=== PATIENT | female | born 1980 | race Caucasian/White ===

== ENCOUNTER 2022-09-28 16:44 | Outpatient (CLI) | payer OTHER, SELFPAY | END 2022-09-28 16:45 | disposition home or self-care (01) | PROVIDERS: PCP Family Medicine; Visit Provider Physician Assistant | DX: Z01.419 Encounter for gynecological examination (general) (routine) without abnormal findings (principal); E03.9 Hypothyroidism, unspecified; I10 Essential (primary) hypertension; F41.9 Anxiety disorder, unspecified | CPT/HCPCS: 82306; 84443 ==

== ENCOUNTER 2022-12-14 13:30 | Outpatient (CLI) | payer OTHER, SELFPAY ==
--- NOTE | 2022-12-14 13:40 | CRLHL7_ITS ---
For Patients: As a result of the Century Cures Act, medical imaging exams and procedure reports are released immediately into your electronic medical record. You may view this report before your referring provider. If you have questions, please contact your health care provider. BILATERAL SCREENING MAMMOGRAM WITH COMPUTER-AIDED DETECTION AND TOMOSYNTHESIS TECHNIQUE: CC and MLO views were obtained. These mammographic images have been obtained using full-field digital technique. These mammographic images were interpreted with the benefit of computer-aided detection. Breast tomosynthesis was used in this interpretation. COMPARISON FILM: None. This is a baseline study. FINDINGS: There are scattered areas of fibroglandular density. IMPRESSION: There is no radiographic evidence for malignancy. ASSESSMENT: BI-RADS Category 1: Negative RECOMMENDATION: Routine screening mammogram in 1 year. A lay language report of this examination will be provided to the patient. TRAMAINE GIORDANO M.D. Diagnostic Radiologist [email or web address] HAIR/alix Transcribed: 12/15/2022, 1:[address]/Dictated by: Tramaine Giordano MD @ 12/15/2022 10:36:00 AM (Electronically Signed)
== END 2022-12-14 13:31 | disposition home or self-care (01) ==
LOC: MAMMO 13:31
PROVIDERS: PCP Family Medicine; Visit Provider Physician Assistant
DX: Z12.31 Encounter for screening mammogram for malignant neoplasm of breast (principal)
CPT/HCPCS: 77063; 77067

== ENCOUNTER 2023-07-12 16:26 | Outpatient (CLI) | payer OTHER, SELFPAY | END 2023-07-12 16:27 | disposition home or self-care (01) | LOC: NFLDREF 07-13 09:06 | PROVIDERS: PCP Family Medicine; Referring Provider Family Medicine; Visit Provider Otolaryngology | DX: G25.81 Restless legs syndrome (principal); Z13.0 Encounter for screening for diseases of the blood and blood-forming organs and certain disorders involving the immune mechanism | CPT/HCPCS: 82728 ==

== ENCOUNTER 2023-08-02 18:31 | Outpatient (CLI) | payer OTHER, SELFPAY | END 2023-08-02 18:32 | disposition home or self-care (01) | LOC: NFLDREF 18:32 | PROVIDERS: PCP Family Medicine; Visit Provider Physician Assistant | DX: N92.0 Excessive and frequent menstruation with regular cycle (principal) | CPT/HCPCS: 84443 ==

== ENCOUNTER 2023-08-08 15:52 | Outpatient (CLI) | payer OTHER, SELFPAY ==
--- NOTE | 2023-08-08 16:00 | US_ITS ---
Final Report Patient: SHIRA BRANDT Facility:?[facility] Patient ID:?[id number] Site Patient ID:?[id number]. Site :?1980 Study:?US Pelvis PELVIS TA & TV-08/08/2023 5:21:49 PM Ordering Physician:SANDY SEPTEMBER Final Report: Indication: Excessive or frequent menstruation Technique: Grayscale and color ultrasound of the abdomen and pelvis from a transabdominal and transvaginal approach. Transvaginal imaging necessary for improved visualization of the endometrium. Comparison: None Findings: The uterus measures 9.5 x 5.2 x 6.9 centimeters. No uterine masses. The endometrium measures 1.5 centimeters in double thickness. No endometrial masses. Endometrial canal has an arcuate shape. This is best seen on 3D imaging. Fundal contour appears smooth. The right ovary measures 3.3 x 1.8 x 2.0 centimeters. The left ovary measures 4.1 x 2.4 x 2.5 centimeters. Physiologic appearance of both ovaries. Normal color flow. Few nabothian cysts. There is a small cyst in the anterior inferior perivaginal soft tissues consistent with a Leonidas duct cyst. Per the patient this is a known finding. Impression: 1. 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 MR could be confirmatory if necessary. Dictated by Izabella Silva MD @ 08/09/2023 6:34:59 AM (Electronic Signature)
== END 2023-08-08 15:53 | disposition home or self-care (01) ==
LOC: US 15:52
PROVIDERS: PCP Family Medicine; Visit Provider Physician Assistant
DX: N92.0 Excessive and frequent menstruation with regular cycle (principal)
CPT/HCPCS: 76830; 76856

== ENCOUNTER 2023-09-06 15:35 | Outpatient (CLI) | payer OTHER, SELFPAY ==
--- NOTE | 2023-09-06 15:30 | MR_ITS ---
Patient: SHIRA BRANDT Facility:?[facility] Patient ID:?[id number] Site Patient ID:?[id number]. Site :?1980 Study:?MRI-Pelvis W/ and W/O Cont 20 CC DOATERM-09/06/2023 4:52:34 PM Ordering Physician:?AJIT COATES Final Report: INDICATION: Known Leonidas duct cyst. COMPARISON: Pelvic ultrasound dated 08 August 2023. TECHNIQUE: Pelvic MRI with T1, T2, and postcontrast images. Intravenous gadolinium administered. FINDINGS: Normal appearance of the uterus. Normal thickness of the endometrial stripe. IUD in place. Nabothian cysts in the cervix. 2.7 x 2.0 x 1.1 cm cyst along the right anterior lateral wall of the upper vagina. Normal appearance of the ovaries which contain scattered small follicles. Trace amount of free fluid in the pelvis. No other bony or soft tissue abnormalities identified. Impression : 1. 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 Dictated by Didier Hannon MD @ 09/06/2023 10:39:51 PM Signed by:?Didier Hannon MD @09/06/2023 10:39:51 PM (Electronic Signature)
== END 2023-09-06 15:36 | disposition home or self-care (01) ==
LOC: MRI 15:36
PROVIDERS: PCP Family Medicine; Visit Provider Obstetrics & Gynecology
DX: N89.8 Other specified noninflammatory disorders of vagina (principal)
CPT/HCPCS: 72197; A9575

== ENCOUNTER 2023-12-13 16:05 | Outpatient (CLI) | payer OTHER, SELFPAY ==
--- OUTSIDE RECORDS SUMMARY | 2023-12-16 08:38 | XMS_ITS | Referral Summary ---
Author Organization [facility] Address [address] [place] [address] Care Team Providers Care Acquisition Marketing Manager Name Role Phone None Reported, Pcp Primary Care Provider Unavail able Source Comments Patient records contain information from all sites at [facility]. For routine questions regarding patient records, call [phone] during business hours, M-F 8:00 AM - 5:00 PM Central Time. Record requests for emergency care only can be directed to [phone] at any time.[facility] Encounters Date Type Department Care Team Description 12/13/2023 3:30 PM CDT External Outreach Division of Nephrology and Hypertension in [place], [place] [address] [place] [address] Jie Black M.D., Ph.D. Arrived from Last 3 Months Allergies No known active allergies Medications Medication Sig Dispensed Refills Start Date End Date Status cholecalciferol (VITAMIN D3) 2,000 Unit tablet Take 1 tablet by mouth daily. 02/21/2014 Active escitalopram (LEXAPRO) 10 mg tablet Take 10 mg by mouth daily. Active irbesartan (AVAPRO) 150 mg tablet Take 1 tablet (150 mg total) by mouth daily. 100 tablet 3 12/13/2022 Active iron 18 mg tablet Take 1 tablet by mouth daily. Active aluminum chloride (DRYSOL) 20 % external solutionIndication s:Hyperhidrosis Apply 1 Application topically at bedtime. 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 No 08/17/2023 Humiliation, Afraid, Rape, and Kick questionnair e Answer Date Recorded Within the last year, have y ou been afraid of your partner or ex-partner? No 01/17/2022 Within the last year, have y ou been humiliated or emotionally abused in other ways by your partner or ex-partner? No Within the last year, have y ou been kicked, hit, slapped, or otherwise physically hurt by your partner or ex-partner? No 01/17/2022 Within the last year, have y ou been raped or forced to have any kind of sexual activity by your partner or ex-partner? No 01/17/2022 Social Connection and Isolat ion Panel [NHANES] Answer Date Recorded In a typical week, how many times do you talk on the phone with family, friends, or neighbors? Three times a week 01/17/2022 How often do you get togethe r with friends or relatives? More than three times a week 01/17/2022 How often do you attend chur ch or bahai services? More than 4 times per year 01/17/2022 Do you belong to any clubs o r organizations such as mandaen groups, unions, fraternal or athletic groups, or school groups? Yes 01/17/2022 How often do you attend meet ings of the clubs or organizations you belong to? More than 4 times per year 01/17/2022 Are you , , di vorced, , never , or living with a partner? 01/17/2022 AUDIT-C Answer Date Recorded Q1: How often do you have a drink containing alcohol? Monthly or less 01/17/2022 Q2: How many drinks containi ng alcohol do you have on a typical day when you are drinking? Patient does not drink Q3: How often do you have si x or more drinks on one occasion? Never 01/17/2022 Overall Financial Resource Strain (CARDIA) Answe r Date Recorded How hard is it for you to pa y for the very basics like food, housing, medical care, and heating? Not hard at all 01/17/2022 [facility] of Occupat ional Health - Occupational Stress Questionnaire Answer Date Recorded Do you feel stress - tense, restless, nervous, or anxious, or unable to sleep at night because your mind is troubled all the time - these days? Not at all 01/17/2022 Exercise Vital Sign Answer Date Recorde d On average, how many days pe r week do you engage in moderate to strenuous exercise (like a brisk walk)? 5 days 08/17/2023 On average, how many minutes do you engage in exercise at this level? 30 min 08/17/2023 Hunger Vital Sign Answer Date Recorded Within the past 12 months, y ou worried that your food would run out before you got the money to buy more. Never true 08/17/19 24 Within the past 12 months, t he food you bought just didn't last and you didn't have money to get more. Never true 08/17/2023 PRAPARE - Transportation Answer Date Re corded In the past 12 months, has l ack of transportation kept you from medical appointments or from getting medications? No 07/22 In the past 12 months, has l ack of transportation kept you from meetings, work, or from getting things needed for daily living? No 08/17/2023 Nutrition Answer Date Recorded Nutrition: EVOO Fat Source No 08/17 On average, how many serving s of fruits and vegetables do you eat per day (serving size is equal to 1 cup or approximately the size of a tennis ball)? 3-5 08/17/2023 Dental Answer Date Recorded Dental: Regular Dentist Yes 01/18/20 Employment Answer Date Recorded Employment status Employed and actively working without restrictions 08/17/2023 Housing Stability Answer Date Recorded What is your living situation today? I have a [facility] place to live 08/17/2023 Education Answer Date Recorded What is the highest level of school you have completed or the highest degree you have received? Master's degree (e.g., MA, MS, Inez, MEd, [employer], [employer]) 11/27/2019 Sex and Gender Information Value Date Recorded Sex Assigned at Female 07/07/2018 8:28 PM PHOTO STYLIST Gender Identity Female 07/07/2018 8:28 PM PHOTO STYLIST Sexual Orientation Straight 07/07/2018 8: 28 PM PHOTO STYLIST Last Filed Vital Signs Vital Sign Reading Time Taken Comments Blood Pressure 118/74 12/13/2022 1:58 PM CDT Pulse 63 09/14/2022 12:00 PM CDT Temperature 36.7 ??C (98.1 ??F) 12/13/2022 1:44 PM CD T Respiratory Rate 10 09/14/2022 11:1 5 AM CDT Oxygen Saturation 100% 09/14/2022 12: 00 PM CDT Inhaled Oxygen Concentration - - Weight 77.1 kg (169 lb 15.6 oz) 12/13/2022 1:44 PM CDT Height 183 cm (6' 0.05) 09/14/2022 6:50 AM CDT Body Mass Index 23.02 09/14/2022 6:50 AM CDT Plan of Treatment Scheduled Procedures Name Priority Associated Diagnoses Date/Ti me OSTEOTOMY MAXILLA Malocclusion OSTEOTOMY BILATERAL SAGITTAL SPLIT RAMUS MANDIBLE Malocclusion Medical Devices Implanted Type Area Addiction Nurse Device Identifier Shelf Expiration Date Model / Serial / Lot Misc Other Misc Other Mouth Procedures Procedure Name Priority Date/Time Associated Diagnosis Comments BASIC METABOLIC PANEL, S/P Routine 12/13/2022 2:39 PM CDT Polycystic Kidney Autosomal Dominant from Last 3 Months or Most Recently Relevant to Health Maintenance Results * Basic Metabolic Panel (12/13/2022 2:39 PM CDT) Potassium, S 4.2 3.6 - 5.2 mmol/L 12/13/2022 3:36 PM CDT DTL Sodium, S 139 135 - 145 mmol/L 12/13/2022 3:36 PM CDT DTL Chloride, S 102 98 - 107 mmol/L 12/13/2022 3:36 PM CDT DTL Bicarbonate, S 28 22 - 29 mmol/L 12/13/2022 3:36 PM CDT DTL Anion Gap 9 7 - 15 12/13/2022 3:36 PM CDT DTL BUN (Blood Urea Nitrogen), S 20 6 - 21 mg/dL 12/13/2022 3:36 PM CDT DTL Creatinine 0.99 0.59 - 1.04 mg/dL 12/13/2022 3:36 PM CDT DTL Estimated GFR (eGFR) 74 >=60 mL/min/BSA 12/13/2022 3:36 PM CDT DTL Comment: Estimated GFR calculated using the 2020 CKD_EPI creatinine equation. Calcium, Total, S 9.5 8.6 - 10.0 mg/dL 12/13/2022 3:36 PM CDT DTL Glucose, S 94 70 - 140 mg/dL 12/13/2022 3:36 PM CDT DTL Blood (Blood, Venous) 12/13/2022 2:39 PM CDT 12/13/2022 3:13 PM CDT Rhett Potts M.D. LAB BLOOD ADD-ON [facility] [address] [place] [address], [facility] [place] [address] [place] [address] from Last 3 Months or Most Recently Relevant to Health Maintenance Advance Directives For more information, please contact: [phone] * Full Code (Latest Code Status on File) Date Activated Date Inactivated Comments 09/14/2022 11:40 AM 09/16/2022 2:08 AM Question Answer Comments Full Code: Discussed * Full Code Date Activated Date Inactivated Comments 09/14/2022 6:35 AM 09/14/2022 11:40 AM Question Answer Comments Full Code: Discussed Care Teams Acquisition Marketing Manager Relationship Specialty Start Date End Date None Reported, Pcp PCP - General Family Medicine 09/14/22
--- OUTSIDE RECORDS SUMMARY | 2023-12-16 08:38 | XMS_ITS | Clinical Summary ---
Author Organization [facility] Address [place], [place] [address] Care Team Providers Care Wire Technician Name Role Phone Aylin Solis MD Primary Care Provider Unavaila ble Allergies No known active allergies Medications Medication Sig Dispensed Refills Start Date End Date Status levothyroxine (SYNTHROID) 50 mcg tabletIndications :hypothyroidism Take 50 mcg by mouth before breakfast. Indications: HYPOTHYROIDISM Active Breast Pump - Purchase For home use. Gestation age at delivery: 39 weeks. Reason for need: facilitation of . Length of need: 12 months 1 Device 0 05/02/2013 Active cholecalciferol (VITAMIN D3) 2,000 unit capsule Take 2,000 Units by mouth once daily. Active VIT W-CA,FE,FA,<1 MG, ( VITAMIN ORAL) Take by mouth once daily. Active ibuprofen (ADVIL; MOTRIN) 600 mg tabletIndications :Spontaneous vaginal delivery Take 1 tablet by mouth every 6 hours if needed for Pain. Maximum of 3200 mg in 24 hours. 60 tablet 12/25/2015 Active Active Problems Problem Noted Date Diagnosed Date Chronic hypertension with ex acerbation during in third trimester 12/23/2015 Spontaneous vaginal delivery 12/23/2015 Gestational hypertension 04/30/2013 Eczematous dermatitis of eyelid 12/31/2009 Polycystic kidney 12/19/2009 Overview: 01/2010 - Dr. Rhett Potts at [place] - yearly UA, BP, creatinine, copies to him at [phone], follow-up every 1-2 years. Recommend high-risk OB for any . Recommend echocardiogram if palpitations. Resolved Problems Problem Noted Date Diagnosed Date Resolved Date Status post vaginal delivery 04/30/2013 12/23/2015 Immunizations Name Administration Dates Next Due Td (Age >=7 Years) 06/20/2003 Tdap 03/14/2013 Family History Medical History Relation Name Comments Allergies Father Good Health Father Good Health Maternal Grandfather Other Maternal Grandfather glaucom a Cancer-breast Maternal Grandmother Hyperlipidemia Maternal Grandmother Other Maternal Grandmother glaucom a Hypertension Mother Other Mother Polycystic kidn eys Diabetes Paternal Grandfather Heart Disease Paternal Grandfather Stroke Paternal Grandfather Diabetes Paternal Grandmother Heart Disease Paternal Grandmother Relation Name Status Comments Father Alive Maternal Grandfather Alive Maternal Grandmother Alive Mother Alive Paternal Grandfather Paternal Grandmother Social History Tobacco Use Types Packs/Day Years Used Date Smoking Tobacco: Never Smokeless Tobacco: Never Alcohol Use Standard Drinks/Week Comments No 0 (1 standard drink = 0.6 oz pur e alcohol) rare Sex and Gender Information Value Date Recorded Sex Assigned at Not on file Gender Identity Not on file Sexual Orientation Not on file Obstetrics History Para Term AB IAB SAB Ectopic Multiple Livin g Live Births 4 3 3 0 1 0 1 0 0 3 3 Date Outcome GA Total Labor Labor/2nd/3rd Weight Sex Type Anes PTL Rivka A1 A5 Name Clin SAB 02/2011 Term 40w 0d 4h 00m/ 4.17 kg (9 lb 3 oz) F Vag Epidur al N Livin g Carly 013 Term 39w 2d 3.93 kg (8 lb 10.5 oz) M Vag Livin g 9 9 SHERMAN LEE Delivery Location:[facility] 016 Term 38w 5d 4.59 kg (10 lb 2 oz) M Vag None Livin g 9 9 Complications:None Delivery Location:[facility] Last Filed Vital Signs Vital Sign Reading Time Taken Comments Blood Pressure 131/85 12/25/2015 9:00 AM CDT Pulse 71 12/25/2015 9:00 AM CDT Temperature 36.6 ??C (97.8 ??F) 12/25/2015 9:00 AM CD T Respiratory Rate 16 12/25/2015 9:00 AM CDT Oxygen Saturation 100% 12/23/2015 11:45 PM CDT Inhaled Oxygen Concentration - - Weight 79.1 kg (174 lb 4.8 oz) 12/25/2015 9:00 A M CDT Height 182.9 cm (6') 12/23/2015 3:30 PM CDT Body Mass Index 23.64 12/23/2015 3:30 PM CDT Plan of Treatment Health Maintenance Due Date Last Done Comments Depression screening for age 12+ 1994 HIV for age 15-65 1997 BMI (ht and wt on same day) for age 18+ 2000 Hepatitis C screening for age 18-79 2000 COVID-19 vaccine series (2022- season) 2023 Tetanus booster 03/14/2023 03/14/2013, 06/20/2003 Influenza for age 9-49 02/19/2024 Pap test for age 21-65 03/10/2024 , 03/10/2021, 12/18/2009, Additional history exists Tdap Completed 03/14/2013 Pneumococcal series for age 6-64 Aged Out No longer eligible based on patient's age to complete this topic Procedures Procedure Name Priority Date/Time Associated Diagnosis Comments HAND BUNCH MAKER THIN PREP PAP SCREEN IMAGED Routine 03/10/2021 5:35 PM CDT from Last 3 Months or Most Recently Relevant to Health Maintenance Results * HAND BUNCH MAKER THIN PREP PAP SCREEN IMAGED (03/10/2021 5:35 PM CDT) Case Report Gynecologic Cytology Report ? Case: [id number] ? Authorizing Provider: ??Malu Whaley PA-C ?Collected: ? 03/10/2021 1735 ? Ordering Location: ? [facility] ?Received: ?03/12/2021 1131 ? First Screen: ?Baccam, Minie ? Pathologist: ? Orly Gustafson ? MD [place] ? Specimen: ?HAND BUNCH MAKER ThinPrep Vial Screening, Cervical/Vaginal ? 03/27/2021 1:27 PM CDT [facility] INTERPRETATION/ RESULT NEGATIVE FOR INTRAEPITHELIAL LESION OR MALIGNANCY (NIL) (none) 03/27/2021 1:27 PM T [facility] R NON-NEOPLASTIC FINDING(S) Parakeratosis Reactive cellular changes associated with inflammation/repa ir 03/27/2021 1:27 PM CDT [facility] SPECIMEN ADEQUACY Satisfactory for evaluation Endocervical component present 03/27/2021 1:27 PM CDT [facility] HPV REQUEST HPV and PAP 03/27/2021 1:27 PM CDT [facility] Date of LMP 02/22/2021 03/27/2021 1:27 PM CDT [facility] Last Pap Date 02/02/2016 03/27/2021 1:27 PM CDT [facility] Last Pap Result NIL 1:27 PM CDT [facility] Comment:-HPV Additional Information 03/27/2021 1:27 PM CDT [facility] Comment: Interpreted at [facility] - [address], [place] [address] Automated Review Successful 03/27/2021 1:27 PM CDT [facility] Comment:Specimen processed s uccessfully by automated neighborhood service center director device, [employer] Imaging System, [employer] ANCILLARY TESTING HAND BUNCH MAKER HPV Ordered, Please see separate report 03/27/2021 1:27 PM CDT [facility] Note The pap test is a screening technique, not a diagnostic procedure. It is used primarily to screen for squamous cancers and precursor lesions. Published studies have shown that it is subject to both false negative and false positive results. The pap test should not be used as the sole means to diagnose or exclude pre-malignant and malignant lesions. 03/27/2021 1:27 PM CDT [facility] Other (Cervical/Vagina l) 03/10/2021 5:35 PM CDT 03/12/2021 11:31 AM CDT September Judd [facility] PATH[facility]Y/CYTOLOGY [facility] [address] [place] [address], [place] from Last 3 Months or Most Recently Relevant to Health Maintenance Advance Directives * Full Code (Latest Code Status on File) Date Activated Date Inactivated Comments 12/23/2015 10:27 PM 12/25/2015 1:51 PM * Full Code Date Activated Date Inactivated Comments 12/23/2015 2:55 PM 12/23/2015 10:26 PM * Full Code Date Activated Date Inactivated Comments 12/23/2015 1:23 PM 12/23/2015 2:55 PM * Full Code Date Activated Date Inactivated Comments 04/30/2013 5:13 PM 05/02/2013 1:33 PM * Full Code Date Activated Date Inactivated Comments 04/30/2013 9:25 AM 04/30/2013 5:13 PM Care Teams Wire Technician Relationship Specialty Start Date End Date Aylin Solis MD PCP - General Family Practice 04/27/13
--- OUTSIDE RECORDS SUMMARY | 2023-12-16 08:38 | XMS_ITS | Clinical Summary ---
Author Organization [facility] Address [address] [place] [address] Care Team Providers Care Laboratory Chief Name Role Phone None Reported, Pcp Primary Care Provider Unavail able Source Comments Patient records contain information from all sites at [facility]. For routine questions regarding patient records, call [phone] during business hours, M-F 8:00 AM - 5:00 PM Central Time. 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 Arrived from Last 3 Months Immunizations Name Administration Dates Next Due Tdap 03/20/2011 Family History Medical History Relation Name Comments Kidney disease Maternal Grandfather Patel Hypertension Mother Radha Kidney disease Mother Radha Relation Name Status Comments Maternal Grandfather Patel Mother Radha Social History Tobacco Use Types Packs/Day Years Used Date Smoking Tobacco: Never Smokeless Tobacco: Never Tobacco Cessation:Counseling Given: Not Answered Alcohol Use Standard Drinks/Week Comments No 0 (1 standard drink = 0.6 oz pur e alcohol) [facility] Utilities Answer Date Recorded In the past 12 months has e electric, gas, oil, or water company threatened to shut off services in your [...] 01/17/2022 How often do you attend chur or mormonism services? More than 4 times per year 01/17/2022 Do you belong to any clubs o r organizations such as voodoo groups, unions, fraternal or athletic groups, or [...] and heating? Not hard at all 01/17/2022 [facility] Occupat ional Health - Occupational Stress [...] situation today? I have a [facility] place to live 08/17/2023 Education Answer Date Recorded What is the highest level of school you have completed or the highest degree you have received? 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 Health Maintenance Due Date Last Done Comments HIV Screening 1982 Hepatitis C Screening 1982 Lipid (Cholesterol) Screening 1982 Mammogram 1982 Visit: Chronic Disease, age 18+ 1982 Hepatitis B Vaccines (1 of 3 - 19+ 3-dose series) 2001 Influenza Vaccine (#1) 2023 2, 03/23/2021, 03/21/2020, Additional history exists Depression Screening (Annual PHQ-2) 06/20/2023 Creatinine Level (Kidney Function Test) 12/14/2023 12/13/2022, 01/21/2022, 12/01/2021, Additional history exists Office Visit for Blood Pressure Check / Re-check 12/14/2023 12/13/2022 Potassium Level 12/14/2023 12/13/2022, 08/0 09/2021, 12/01/2021, Additional history exists Sodium Level 12/14/2023 12/13/2022, 08/0 09/2021, 01/07/2021 Cervical Cancer Screening 03/10/20242020, 02/02/2016, 07/21/2014 (Performed elsewhere), Additional history exists DTaP,Tdap,and Td Vaccines (4 - Td or Tdap) 10/13/2025 10/14/2015, 03/14/2013, 03/20/2011 COVID-19 Vaccine Completed 11/15/2023, , 04/18/2021, Additional history exists HPV Vaccines Aged Out No longer eligi ble based on patient's age to complete this topic Pneumococcal vaccine (0-64 years) Aged Out No longer eligible based on patient's age to complete this topic Medical Devices Implanted Type Area Goal Umpire Device Identifier Shelf Expiration Date Model / [...] CDT Rhett Potts M.D. LAB BLOOD ADD-ON [facility] [address] [place] [address], [facility] D[facility][note 3] [address] [place] [address] from Last 3 Months or Most Recently Relevant to Health Maintenance Advance Directives For more information, please contact: [phone] * Full Code (Latest Code Status on File) Date Activated Date Inactivated Comments 09/14/2022 11:40 AM 09/16/2022 2:08 AM Question Answer Comments Full Code: Discussed * Full Code Date Activated Date Inactivated Comments 09/14/2022 6:35 AM 09/14/2022 11:40 AM Question Answer Comments Full Code: Discussed Care Teams Laboratory Chief Relationship Specialty Start Date End Date None Reported, Pcp PCP - General Family Medicine 09/14/22
--- OUTSIDE RECORDS SUMMARY | 2023-12-16 08:38 | XMS_ITS ---
Author Organization [facility] Address [address] [place] [address] Care Team Providers Care Fitting Room Checker Name Role Phone Unavailable Unavailable Unavailable Surgery Details Not on file Complications Check Surgery Details section. Procedure Estimated Blood Loss Check Surgery Details section. Procedure Findings Check Surgery Details section. Procedure Specimens Taken Check Surgery Details section.
--- OUTSIDE RECORDS SUMMARY | 2023-12-16 08:38 | XMS_ITS | Encounter Summary ---
Author Organization [facility] Address [address] [place] [address] Care Team Providers Care Transcript Evaluator Name Role Phone None Reported, Pcp Primary Care Provider Unavail able Reason for Visit * Appointment Request (Routine) - Closed Specialty Diagnoses / Procedures Referred By Contac t Referred To Contact Nephrology and Hypertension Referral ID Status Reason Start Date Expiration Date Visits Re quested Visits Authorized [id number] Closed 10/27/2023 10/26/2024 1 1 Encounter Details Date Type Department Care Team (Late st Contact Info) Description 12/13/2023 3:30 PM CDT External Outreach Division of Nephrology and Hypertension in [place], [place] [address] [place] [phone] Jie Black M.D., Ph.D. [address] [place] [phone] Arrived Social History Tobacco Use Types Packs/Day Years Used Date Smoking Tobacco: Never Smokeless Tobacco: Never Alcohol Use Standard Drinks/Week Comments No 0 (1 standard drink = 0.6 oz pur e alcohol) [facility] Utilities Answer Date Recorded In the [...] How often do you attend chur or rastafarian services? More than 4 times per year 01/17/2022 Do you belong to any clubs o r organizations such as oriental orthodox groups, unions, fraternal or athletic groups, or [...] and heating? Not hard at all 01/17/2022 [facility] of Occupat ional Health - Occupational Stress [...] your living situation today? [facility] a [facility] place [facility] 08/17/2023 Education Answer Date Recorded What is the highest level of school you have completed or the highest degree you have received? 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
--- OUTSIDE RECORDS SUMMARY | 2023-12-16 08:39 | XMS_ITS | Encounter Summary ---
Author Organization [facility] Address [address] [place] [address] Care Team Providers Care English Tutor Name Role Phone Tramaine Colby MD Primary Care Provider [phone] Encounter Details Date Type Department Care Team (Late st Contact Info) Description 11/19/2021 Orders Only [facility] Laboratory [address] [place] [phone] Soumya Hand, [facility] [address] [place] [address] Pre-operative laboratory examination (Primary Dx) Social History Tobacco Use Types Packs/Day Years Used Date Smoking Tobacco: Never Assessed Sex and Gender Information Value Date Recorded Sex Assigned at Not on file Gender Identity Not on file Sexual Orientation Not on file documented as of this encounter Plan of Treatment Not on file documented as of this encounter Visit Diagnoses Diagnosis Pre-operative laboratory examination- Primary Pre-procedural laboratory examination documented in this encounter Care Teams English Tutor Relationship Specialty Start Date End Date Tramaine Colby MD PCP - General Family Medicine 11/27/21 documented as of this encounter
--- OUTSIDE RECORDS SUMMARY | 2023-12-16 08:39 | XMS_ITS | Referral Summary ---
Author Organization [facility] Address [address] [place] [address] Care Team Providers Care Machine I Trimmer Name Role Phone Tramaine Colby MD Primary Care Provider [phone] Allergies No known active allergies Medications Medication Sig Dispensed Refills Start Date End Date Status cholecalciferol 50 MCG (1999) CAPS Take by mouth daily Active irbesartan (AVAPRO) 150 MG tablet Take 150 mg by mouth At Bedtime Active escitalopram (LEXAPRO) 10 MG tablet Take 10 mg by mouth daily Active Multiple Vitamins-Minerals (ONE DAILY MULTIVITAMIN WOMEN PO) Take by mouth daily Active acetaminophen (TYLENOL) 325 MG tabletIndications:Status post surgery Take 2 tablets (650 mg) by mouth every 4 hours as needed for other (For optimal non-opioid multimodal pain management to improve pain control.) 40 tablet 2 Active amoxicillin-clavulanate (AUGMENTIN) 875-125 MG tabletIndications:Periop erative Pharmacoprophylaxis Take 1 tablet by mouth every 12 hours 20 tablet 2 Active chlorhexidine (PERIDEX) 0.12 % solutionIndications:Stat us post surgery Swish and spit 15 mLs in mouth 2 times daily 473 mL 2 Active oxyCODONE (ROXICODONE) 5 MG tabletIndications:Status post surgery Take 1 tablet (5 mg) by mouth every 6 hours as needed for breakthrough pain 12 tablet 2 Active pseudoePHEDrine (SUDAFED) 60 MG tabletIndications:Status post surgery Take 1 tablet (60 mg) by mouth every 6 hours as needed for congestion 16 tablet 2 Active sodium chloride (OCEAN) 0.65 % nasal sprayIndications:Status post surgery [place] 2 sprays into both nostrils every hour as needed for other (For nasal dryness) 50 mL 2 Active methylPREDNISolone (MEDROL DOSEPAK) 4 MG tablet therapy packIndications:Status post surgery Follow Package Directions 21 tablet 2 Active Active Problems Problem Noted Date Diagnosed Date Status post surgery 12/01/2021 Social History Tobacco Use Types Packs/Day Years Used Date Smoking Tobacco: Never Smokeless Tobacco: Never Alcohol Use Standard Drinks/Week Comments Not Currently 0 (1 standard drink = 0.6 oz pur e alcohol) Adolescent Education Answer Date Record ed Getting School Help Needed Not on file 03/27 Sex and Gender Information Value Date Recorded Sex Assigned at Not on file Gender Identity Not on file Sexual Orientation Not on file Last Filed Vital Signs Vital Sign Reading Time Taken Comments Blood Pressure 139/90 12/02/2021 7:00 AM CDT Pulse 79 12/02/2021 7:00 AM CDT Temperature 37.6 ??C (99.7 ??F) 12/02/2021 7:00 AM CD T Respiratory Rate 18 12/02/2021 7:00 AM CDT Oxygen Saturation 100% 12/02/2021 7:00 AM CDT Inhaled Oxygen Concentration - - Weight 75 kg (165 lb 6.4 oz) 12/01/2021 11:04 AM CDT Height 182.9 cm (6') 12/01/2021 11:04 AM CDT Body Mass Index 22.43 12/01/2021 11:04 AM CDT Plan of Treatment Not on file Medical Devices Implanted Type Area Vehicle Care Specialist Device Identifier Shelf Expiration Date Model / Serial / Lot Imp Scr Syn Matrix 1.85x6mm Self Drill .[id number] - [id number] Implanted:Qty : 20 on 12/01/2021 by Soumya Hand DDS at [facility] Metallic Hardware/Anc hor SYNTHES-STRATEC 511.22 [id number] NOV 2021 Trumatch 3-D Custom Plates Implanted:Qty : 1 on 12/01/2021 by Soumya Hand DDS at [facility] N/A: Maxilla Depuy [id number] / [id number] NOV 2021 Procedures Procedure Name Priority Date/Time Associated Diagnosis Comments GLUCOSE BY METER Routine 12/02/2021 6:02 AM CDT from Last 3 Months or Most Recently Relevant to Health Maintenance Results * (ABNORMAL) Glucose by meter (12/02/2021 6:02 AM CDT) GLUCOSE BY METER POCT 181(H) 70 - 99 mg/dL 12/02/2021 6:09 AM CDT RH LABORATORY POC Blood, Capillary BLOOD SPECIMEN / Unknown 12/02/2021 6:02 AM CDT 12/02/2021 6:09 AM CDT Soumya Hand DDS LAB - BEAKER POCT RH LABORATORY POC [facility] [address] [facility] Lab (1st floor, no room number) [place] [address], [facility] [phone] from Last 3 Months or Most Recently Relevant to Health Maintenance Advance Directives For more information, please contact: [phone] * Full Code (Latest Code Status on File) Date Activated Date Inactivated Comments 12/01/2021 4:31 PM 12/02/2021 1:32 PM All basic an d advanced life-sustaining interventions are performed as appropriate Question Answer Comments Code status determined by: Discussion with lawanda nt/ legal decision maker Care Teams Machine I Trimmer Relationship Specialty Start Date End Date Tramaine Colby MD PCP - General Family Medicine 11/27/21
--- OUTSIDE RECORDS SUMMARY | 2023-12-16 08:39 | XMS_ITS | Encounter Summary ---
Author Organization [facility] Address [address] [place] [address]. [place] [address] Care Team Providers Care Corsetier Name Role Phone Tramaine Colby MD Primary Care Provider Encounter Details Date Type Department Care Team (Late st Contact Info) Description 11/19/2021 [facility] Only [facility] Laboratory [address] [place] [phone] Brett Saul MD [facility] [address] [place] [address] Pre-operative laboratory examination (Primary Dx) Social History [...] examination documented in this encounter Care Teams Corsetier Relationship Specialty Start Date End Date Tramaine Colby MD PCP - General Family Medicine 11/27/21 documented as of this encounter
--- OUTSIDE RECORDS SUMMARY | 2023-12-16 08:39 | XMS_ITS | Clinical Summary ---
Author Organization [facility] Address [address] [place] [address] Care Team Providers Care Portfolio Consultant Name Role Phone Tramaine Colby MD Primary Care Provider [phone] Allergies No known active allergies Medications Medication [...] (OCEAN) 0.65 % nasal sprayIndications:Status post surgery [place] 2 sprays into both nostrils every hour [...] 12/01/2021 11:04 AM CDT Plan of Treatment Health Maintenance Due Date Last Done Comments ADVANCE CARE PLANNING 1982 ANNUAL REVIEW OF HM ORDERS 1982 MAMMO SCREENING 1982 YEARLY PREVENTIVE VISIT 1982 HIV SCREENING 1997 HEPATITIS C SCREENING 2000 HEPATITIS B IMMUNIZATION (1 of 3 - 19+ 3-dose series) 2001 LIPID 2022 COVID-19 Vaccine ( season) 2023 04/18/2021, 08/29/2020, 07/30/2020 PHQ-2 (once per calendar year) 2023 INFLUENZA VACCINE (Season Ended) 2024 03/23/2021, 03/21/2020, 04/06/2019, Additional history exists PAP 03/10/2024 03/10/2021, 03/10/2021 GLUCOSE 12/02/2024 12/02/2021 DTAP/TDAP/TD IMMUNIZATION (7 - Td or Tdap) 10/13/2025 10/14/2015, 03/14/2013, 03/20/2011, Additional history exists HPV IMMUNIZATION Aged Out No longer e ligible based on patient's age to complete this topic IPV IMMUNIZATION Aged Out No longer e ligible based on patient's age to complete this topic MENINGITIS IMMUNIZATION Aged Out No l onger eligible based on patient's age to complete this topic Pneumococcal Vaccine: Pediatrics (0 to 5 Years) and At-Risk Patients (6 to 64 Years) Aged Out No longer eligible based on patient's age to complete this topic RSV MONOCLONAL ANTIBODY Aged Out No l onger eligible based on patient's age to complete this topic Medical Devices Implanted Type Area Director Meetings Device Identifier Shelf Expiration Date Model / Serial / Lot Imp Scr Syn Matrix 1.85x6mm Self Drill [id number] - [id number] Implanted:Qty : 20 on 12/01/2021 by Soumya Hand DDS at [facility] Metallic Hardware/Anc hor SYNTHES-STRATEC .511.22 6. / / [id number] NOV 2021 Trumatch 3-D Custom Plates Implanted:Qty : 1 on 12/01/2021 by Soumya Hand DDS at [facility] N/A: Maxilla Depuy [id number] / / [id number] NOV 2021 Procedures Procedure [...] AM CDT 12/02/2021 6:09 AM CDT Soumya Corley Rake DDS LAB - ROMULOAKER POCT RH LABORATORY POC [facility] Acute Care Lab [address] Lab (1st floor, no room number) [place] [address], [facility] [phone] from Last 3 Months or Most Recently Relevant to Health Maintenance Advance Directives For more information, please contact: [phone] * Full Code (Latest Code Status on File) Date Activated Date Inactivated Comments 12/01/2021 4:31 PM 12/02/2021 1:32 PM All basic an d advanced life-sustaining interventions are performed as appropriate Question Answer Comments Code status determined by: Discussion with lawanda nt/ legal decision maker Care Teams Portfolio Consultant Relationship Specialty Start Date End Date Tramaine Colby MD PCP - General Family Medicine 11/27/21
--- OUTSIDE RECORDS SUMMARY | 2023-12-16 08:39 | XMS_ITS | Encounter Summary ---
Author Organization [facility] Address [address] [place] [address] Care Team Providers Care Clinical Resource Manager Name Role Phone Tramaine Colby MD Primary Care Provider Encounter Details Date Type Department Care Team (Late st Contact Info) Description 11/19/2021 [facility] Only [facility] Laboratory [address] [place] [address] [place] [address] [place] [address] Social History Tobacco Use Types Packs/Day Years Used Date Smoking Tobacco: Never Assessed Sex and Gender Information Value Date Recorded Sex Assigned at Not on file Gender Identity Not on file Sexual Orientation Not on file documented as of this encounter Plan of Treatment Not on file documented as of this encounter Visit Diagnoses Not on filedocumented in this encounter Care Teams Clinical Resource Manager Relationship Specialty Start Date End Date Tramaine Colby MD PCP - General Family Medicine 11/27/21 documented as of this encounter
== END 2023-12-13 16:06 | disposition home or self-care (01) ==
LOC: NFLDREF 12-16 08:36
PROVIDERS: PCP Family Medicine; Referring Provider Family Medicine; Visit Provider Internal Medicine Nephrology
DX: Z00.00 Encounter for general adult medical examination without abnormal findings (principal); Q61.3 Polycystic kidney, unspecified; I10 Essential (primary) hypertension; E03.9 Hypothyroidism, unspecified; F41.9 Anxiety disorder, unspecified
CPT/HCPCS: 80069; 82043; 82570; 87086

== ENCOUNTER 2023-12-21 14:02 | Outpatient (CLI) | payer OTHER, SELFPAY ==
--- NOTE | 2023-12-21 14:00 | CRLHL7_ITS ---
For Patients: As a result of the Century Cures Act, medical imaging exams and procedure reports are released immediately into your electronic medical record. You may view this report before your referring provider. If you have questions, please contact your health care provider. BILATERAL SCREENING MAMMOGRAM WITH COMPUTER-AIDED DETECTION AND TOMOSYNTHESIS TECHNIQUE: CC and MLO views were obtained. These mammographic images have been obtained using full-field digital technique. These mammographic images were interpreted with the benefit of computer-aided detection. Breast Tomosynthesis was used in this interpretation. COMPARISON FILM: 12/14/2022. FINDINGS: There are scattered areas of fibroglandular density IMPRESSION: There is no radiographic evidence for malignancy. ASSESSMENT: BI-RADS Category 1: Negative RECOMMENDATION: Routine screening mammogram in 1 year. A lay language report of this examination will be provided to the patient. Tramaine Arvizu M.D. Diagnostic Radiologist [email or web address] HAIR/rocio chan/Dictated by: Tramaine Arvizu MD @ 12/23/2023 9:58:00 AM (Electronically Signed)
--- OUTSIDE RECORDS SUMMARY | 2023-12-21 14:08 | XMS_ITS | Referral Summary ---
Author Organization [facility] Address [address] [place] [address] Care Team Providers Care Sign Hanger Supervisor Name Role Phone Tramaine Colby MD Primary Care Provider Allergies No known active allergies Medications Medication [...] (OCEAN) 0.65 % nasal sprayIndications:Status post surgery [place] 2 sprays into both nostrils every hour [...] on file Medical Devices Implanted Type Area Technician Biological Health Device Identifier Shelf Expiration Date Model / Serial / Lot Imp Scr Syn Matrix 1.85x6mm Self Drill .[id number] - [id number] Implanted:Qty : 20 on 12/01/2021 by Soumya Hand DDS at [facility] Metallic Hardware/Anc hor SY[employer]STRAT[employer] 511.22 [id number] NOV 2021 Trumatch 3-D Custom Plates Implanted:Qty : 1 on 12/01/2021 by Soumya Hand DDS at [facility] N/A: Maxilla Depuy [id number] / [id number] [...] LAB - BEAKER POCT RH LABORATORY POC [facility] Acute Care Lab [address] [facility] Lab (1st floor, no room number) [place] [address], [facility] [phone] from Last 3 Months or Most Recently Relevant to Health Maintenance Advance Directives For more information, please contact: [phone] * Full Code (Latest Code Status on File) Date Activated Date Inactivated Comments 12/01/2021 4:31 PM 12/02/2021 1:32 PM All basic an d advanced life-sustaining interventions are performed as appropriate Question Answer Comments Code status determined by: Discussion with lawanda nt/ legal decision maker Care Teams Sign Hanger Supervisor Relationship Specialty Start Date End Date Tramaine Colby MD PCP - General Family Medicine 11/27/21
--- OUTSIDE RECORDS SUMMARY | 2023-12-21 14:08 | XMS_ITS | Clinical Summary ---
Author Organization [facility] Address [place], [place] [address] Care Team Providers Care Biodiesel Operations Manager Name Role Phone Aylin Solis MD Primary [...] Overview: 01/2010 - Dr. Rhett Potts at [place] - yearly UA, BP, creatinine, copies to him at [phone], follow-up every 1-2 years. Recommend high-risk OB [...] Livin g 9 9 SHERMAN LEE Delivery Location:[facility] 016 Term 38w 5d 4.59 kg (10 lb 2 oz) M Vag None Livin g 9 9 Complications:None Delivery Location:[facility] Last Filed Vital Signs Vital [...] Procedure Name Priority Date/Time Associated Diagnosis Comments STATISTICIAN THEORETICAL THIN PREP PAP SCREEN IMAGED Routine 03/10/2021 5:35 PM CDT from Last 3 Months or Most Recently Relevant to Health Maintenance Results * STATISTICIAN THEORETICAL THIN PREP PAP SCREEN IMAGED (03/10/2021 5:35 PM CDT) Case Report Gynecologic Cytology Report ? Case: [id number] ? Authorizing Provider: ??Malu Whaley PA-C ?Collected: ? 03/10/2021 1735 ? Ordering Location: ? [facility] ?Received: ?03/12/2021 1131 ? First Screen: ?Baccam, Minie ? Pathologist: ? Orly Gustafson ? MD Chelsea ? Specimen: ?STATISTICIAN THEORETICAL ThinPrep Vial Screening, Cervical/Vaginal ? 03/27/2021 1:27 PM CDT [facility]-C ENTRAL LABORATORY INTERPRETATION/ RESULT NEGATIVE FOR INTRAEPITHELIAL LESION OR MALIGNANCY (NIL) (none) 03/27/2021 1:27 PM T [facility] EN[facility] R NON-NEOPLASTIC FINDING(S) Parakeratosis Reactive cellular changes associated with inflammation/repa ir 03/27/2021 1:27 PM CDT [facility] ENTRAL LABORATORY SPECIMEN ADEQUACY Satisfactory for evaluation Endocervical component present 03/27/2021 1:27 PM CDT [facility] ENTRAL LABORATORY HPV REQUEST HPV and PAP 03/27/2021 1:27 PM CDT [facility] ENTRAL LABORATORY Date of LMP 02/22/2021 03/27/2021 1:27 PM CDT [facility] Last Pap Date 02/02/2016 03/27/2021 1:27 PM CDT [facility] Last Pap Result NIL 1:27 PM CDT [facility] Comment:-HPV Additional Information 03/27/2021 1:27 PM CDT [facility] Comment: Interpreted at [facility] - [address], [place] [address] Automated Review Successful 03/27/2021 1:27 PM CDT [facility] Comment:Specimen processed s uccessfully by automated calf skinner device, AkademosPrep Imaging System, [employer] ANCILLARY TESTING STATISTICIAN THEORETICAL HPV Ordered, Please see separate report 03/27/2021 1:27 PM CDT [facility] Note The pap test is a [...] and malignant lesions. 03/27/2021 1:27 PM CDT [facility] Other (Cervical/Vagina l) 03/10/2021 5:35 PM CDT 03/12/2021 11:31 AM CDT September Judd PENA PATHOLOGY/CYTOLOGY [facility] [address] [place] [address], [place] from Last 3 Months or Most [...] 9:25 AM 04/30/2013 5:13 PM Care Teams Biodiesel Operations Manager Relationship Specialty Start Date End Date Aylin Solis MD PCP - General Family Practice 04/27/13
--- OUTSIDE RECORDS SUMMARY | 2023-12-21 14:08 | XMS_ITS | Encounter Summary ---
Author Organization [facility] Address [address] [place] [address]. [place] [address] Care Team Providers Care Laboratory Scientist Name Role Phone Tramaine Colby MD Primary Care Provider Encounter Details Date Type Department Care Team (Late st Contact Info) Description 11/19/2021 [facility] Only [facility] [address] [place] [phone] Brett Saul MD [facility] [address] [place] [address] Pre-operative laboratory examination (Primary Dx) Social History [...] examination documented in this encounter Care Teams Laboratory Scientist Relationship Specialty Start Date End Date Tramaine Colby MD PCP - General Family Medicine 11/27/21 documented as of this encounter
--- OUTSIDE RECORDS SUMMARY | 2023-12-21 14:08 | XMS_ITS | Clinical Summary ---
Author Organization [facility] Address [address] [place] [address] Care Team Providers Care Elementary School Librarian Name Role Phone None Reported, Pcp Primary Care Provider Unavail able Source Comments Patient records contain information from all sites at [facility]. For routine questions regarding patient records, call [phone] during business hours, M-F 8:00 AM - 5:00 PM Central Time. 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 Polycystic Kidney Autosomal Dominant (Primary Dx) from Last 3 Months Immunizations Name Administration [...] drink = 0.6 oz pur e alcohol) [facility] Manifestities Answer Date Recorded In the past [address], gas, oil, or water [employer] threatened to shut off services in your [...] How often do you attend chur or presybeterian services? More than 4 times per year 01/17/2022 Do you belong to any clubs o r organizations such as taoist groups, unions, fraternal or athletic groups, or [...] and heating? Not hard at all 01/17/2022 [facility] - Occupational Stress Questionnaire Answer Date Recorded [...] your living situation today? I have a [facility] place to live 08/17/2023 Education Answer Date Recorded What is the highest level of school you have completed or the highest degree you have received? Master's degree (e.g., MA, MS, Inez, MEd, CASTING WHEEL OPERATOR HELPER, DEYANIRA) 11/27/2019 Sex and Gender Information Value Date Recorded Sex Assigned at Female 07/07/2018 8:28 PM [employer]INS[employer]ING FORMER BRACE END Gender Identity Female 07/07/2018 8:28 PM [employer] Sexual Orientation Straight 07/07/2018 8: 28 PM [employer] Last Filed Vital Signs Vital Sign Reading [...] of 3 - 19+ 3-dose series) 2001 Depression Screening (Annual PHQ-2) 06/20/2023 Creatinine Level (Kidney Function Test) 12/14/2023 12/13/2022, 01/21/2022, 12/01/2021, Additional history exists Office Visit for Blood Pressure Check / Re-check 12/14/2023 12/13/2022 Potassium Level 12/14/2023 12/13/2022, 08/0 09/2021, 12/01/2021, Additional history exists Sodium Level 12/14/2023 12/13/2022, 08/0 09/2021, 01/07/2021 Cervical Cancer Screening 03/10/20242020, 02/02/2016, 07/21/2014 (Performed elsewhere), Additional history exists Influenza Vaccine (#1) 2024 , 03/23/2021, 03/21/2020, Additional history exists DTaP,Tdap,and Td Vaccines (4 - Td or Tdap) 10/13/2025 10/14/2015, 03/14/2013, 03/20/2011 COVID-19 Vaccine Completed 11/15/2023, , 04/18/2021, Additional history exists HPV Vaccines Aged Out No longer eligi ble based on patient's age to complete this topic Pneumococcal vaccine (0-64 years) Aged Out No longer eligible based on patient's age to complete this topic Medical Devices Implanted Type Area Aircraft Structural Design Engineer Device Identifier Shelf Expiration Date Model / [...] CDT Rhett Potts M.D. LAB BLOOD ADD-ON [facility] [address] [place] [address], [facility] [address] [place] [address] from Last 3 Months or Most Recently Relevant to Health Maintenance Advance Directives For more information, please contact: [phone] * Full Code (Latest Code Status on File) Date Activated Date Inactivated Comments 09/14/2022 11:40 AM 09/16/2022 2:08 AM Question Answer Comments Full Code: Discussed * Full Code Date Activated Date Inactivated Comments 09/14/2022 6:35 AM 09/14/2022 11:40 AM Question Answer Comments Full Code: Discussed Care Teams Elementary School Librarian Relationship Specialty Start Date End Date None Reported, Pcp PCP - General Family Medicine 09/14/22
--- OUTSIDE RECORDS SUMMARY | 2023-12-21 14:08 | XMS_ITS | Encounter Summary ---
Author Organization [facility] Address [address] [place] [address] Care Team Providers Care Drill Bit Sharpener Name Role Phone None Reported, Pcp Primary Care Provider Unavail able Reason for Referral * MRI/CAT/PET Scan (Routine) - Authorized Specialty Diagnoses / Procedures Referred By Jose Roberto pizano Referred To Contact Radiology Diagnoses Polycystic Kidney Autosomal Dominant Procedures MR Abdomen without and with IV Contrast Jie Black M.D., Ph.D. [address] [place] [address] [facility] Referral ID Status Reason Start Date Expiration Date V isits Requested Visits Authorized [id number] Authorized 12/17/2023 12/16/2024 1 1 Reason for Visit * Appointment Request (Routine) - Closed Specialty Diagnoses / Procedures Referred By Jose Roberto pizano Referred To Contact Nephrology and Hypertension Referral ID Status Reason Start Date Expiration Date Visits Re quested Visits Authorized [id number] Closed 10/27/2023 10/26/2024 1 1 Encounter Details Date Type Department Care Team (Latest Contact Info) Description 12/13/2023 3:30 PM CDT External Outreach Division of Nephrology and Hypertension in [place], [place] [address] [place] [phone] Jie Black M.D., Ph.D. [address] [place] [phone] Polycystic Kidney Autosomal Dominant (Primary Dx) Social History Tobacco Use Types Packs/Day Years Used Date Smoking Tobacco: Never Smokeless Tobacco: Never Alcohol Use Standard Drinks/Week Comments No 0 (1 standard drink = 0.6 oz pur e alcohol) [facility] Utilities Answer Date Recorded In the past 12 months has th e electric, gas, oil, or water company [...] week 01/17/2022 How often do you attend [facility] or lutheran services? More than 4 times per year 01/17/2022 Do you belong to any clubs o r organizations such as worship groups, unions, fraternal or athletic groups, or [...] and heating? Not hard at all 01/17/2022 [facility] - Occupational Stress Questionnaire Answer [...] your living situation today? I have a [facility] place to live 08/17/2023 Education Answer Date Recorded What is the highest level of school you have completed or the highest degree you have received? Master's degree (e.g., WANDA, MS, Inez, MEd, INFORMATION SYSTEMS SPECIALIST, DEYANIRA) 11/27/2019 Sex and Gender Information Value Date Recorded Sex Assigned at Female 07/07/2018 8:28 PM HOME CARE MUSIC THERAPIST Gender Identity Female 07/07/2018 8:28 PM HOME CARE MUSIC THERAPIST Sexual Orientation Straight 07/07/2018 8: 28 PM HOME CARE MUSIC THERAPIST documented as of this encounter Progress Notes * Jie Black M.D., Ph.D. - 12/13/2023 3:30 PM CDT SUBJECTIVE CHIEF COMPLAINT/REASON FOR VISIT Polycystic kidney disease management. HISTORY OF PRESENT ILLNESS Mrs. Lee is a 43-year-old lady with history of ADPKD diagnosed in 2009. She has family history from her mother and maternal grandfather. She used to follow with Dr. Potts at [facility]. She is transferring care to [facility] due to closer location to her home. Her kidney function has been very stable. She reports that her mother and maternal grandfather had a very slow progression of their chronic kidney disease, and none of them required kidney transplantation or dialysis. Her last MRI of abdomen and pelvis was done in 2019, and it showed a class 1b. She has not repeatedabdominal images since then. She had a brain MRI done in 2022 for monitoring of right anterior communicating artery infundibulum that does not show signs of aneurysm. Radiology has recommended monitoring. Dr. Potts had recommended to repeat this imaging study in 5 years (2027). The patient is normotensive with current regimen of irbesartan 150 mg daily. She does not have history of diabetes. She takes Lexapro and vitamin D and iron supplements. Overall, she feels well and does not have any current concerns. Past Medical History: Diagnosis Date Hypothyroidism 2012 Polycystic Kidney Disease Renal Disease 2009 Past Surgical History: Procedure Laterality Date ABLATION RADIOFREQUENCY ENDOVENOUS Right 09/14/2022 Procedure: ABLATION RADIOFREQUENCY ENDOVENOUS GREAT SAPHENOUS VEIN, SMALL SAPHENOUS VEINS.; Surgeon: Ann Mackenzie M.D.; Location: [facility] ROMB OR HERNIA REPAIR 2007 OTHER CONVERTED SHX (SEE COMMENT) N/A 02/05/2000 >Odontectomy PHLEBECTOMY LOWER EXTREMITY Right 09/14/2022 Procedure: PHLEBECTOMY LOWER EXTREMITY <20; Surgeon: Ann Mackenzie M.D.; Location: [facility] ROM[facility] OR No Known Allergies Social History Tobacco Use Smoking status: Never Smokeless tobacco: Never Substance Use Topics Alcohol use: No Family History Problem Relation Name Age of Onset Hypertension Mother Radha Kidney disease Mother Radha Kidney disease Maternal Grandfather Patel REVIEW OF SYSTEMS All other systems were reviewed and are negative, rest as per HPI. OBJECTIVE BP 117/67 Pulse 67 PHYSICAL EXAMINATION General: No acute distress, breathing comfortably. Heart: Regular rate and rhythm. No murmurs, rubs or gallops. Respiratory: Regular inspiratory effort. No wheezes, no rhonchi. Abdomen: Soft, not tender, not distended. Present bowel sounds. Extremities: Full range of motion. Normal gait. No edema in lower extremities Neuro: No focal deficits. Alert and oriented X 4. Skin: Warm. No rashes. Psych: Answers questions appropriately. No signs of anxiety or depression noted. DIAGNOSTICS Labs: I have reviewed available labs in detail with patient. ASSESSMENT / PLAN #1 Autosomal dominant polycystic kidney disease #2 Hypertension The patient comes to establish care at [facility]. I will order an MRI of abdomen and pelvisto evaluate kidney function. This MRI will be done in [place]. Laboratory workup will be done in [facility]. The patient is normotensive on current therapy. No changes were made to her antihypertensive medications. The patient requires a lipid panel done on a yearly basis. This will be done through her primary care provider. Recommendations for an optimized ADPKD management to slow disease progression: 1- Blood pressure control: We recommend close monitoring and control of blood pressure. Goal ? 130/80 mm Hg. 2- Dietary sodium restriction: We recommend moderate sodium restriction (2.3-3 g/d). 3- Hydration: We recommend moderately enhancing hydration spread out over 24 hrs (during the day, at bedtime and at night if waking up). We recommend maintaining urine osmolality ? 280 mOsm/Kg. 4- Dietary protein: We recommend dietary protein intake of 0.8-1 g/Kg of ideal body weight 5- Dietary phosphorus: We recommend moderate dietary phosphorus restriction to 800 mg /day. 6- Acid base: We recommend maintaining plasma bicarbonate within the normal range (? 22 mEq/L) 7- Caloric intake: We recommend maintaining normal BMI and restrict moderately caloric intake 8- Lipid control: We recommend aiming for serum LDL ? 100 mg/dL. Return visit to this clinic in 1 year to monitor her kidney function and PKD management. All questions were answered. Funmilayo Cr M.D., Ph.D. CT CT Job ID: [id number] documented in this encounter Plan of Treatment Scheduled Orders Name Type Priority Associated Diagnoses Orde r Schedule MR Abdomen without and with IV Contrast Imaging RAD - Routine (most inpatients and all outpatients) Polycystic Kidney Autosomal Dominant Expected: 12/17/2023, Expires: 03/18/2025 Scheduled Procedures Name Priority Associated Diagnoses Date/Ti me OSTEOTOMY MAXILLA Malocclusion OSTEOTOMY BILATERAL SAGITTAL SPLIT RAMUS MANDIBLE Malocclusion documented as of this encounter Visit Diagnoses Diagnosis Polycystic Kidney Autosomal Dominant- Primary documented in this encounter Care Teams Drill Bit Sharpener Relationship Specialty Start Date End Date None Reported, Pcp PCP - General Family Medicine 09/14/22 documented as of this encounter
--- OUTSIDE RECORDS SUMMARY | 2023-12-21 14:08 | XMS_ITS ---
Author Organization [facility] Address [address] [place] [address] Care Team Providers Care Excellence Leader Name Role Phone Unavailable Unavailable Unavailable Surgery Details Not on file Complications Check Surgery Details section. Procedure Estimated Blood Loss Check Surgery Details section. Procedure Findings Check Surgery Details section. Procedure Specimens Taken Check Surgery Details section.
--- OUTSIDE RECORDS SUMMARY | 2023-12-21 14:08 | XMS_ITS | Encounter Summary ---
Author Organization [facility] Address [address] [place] [address] Care Team Providers Care Water Quality Analyst Name Role Phone Tramaine Colby MD Primary Care Provider Encounter Details Date Type Department Care Team (Late st Contact Info) Description 11/19/2021 Orders Only [facility] [address] [place] [phone] Soumya Hand, DALIA [facility] OMS [address] [place] [address] Pre-operative laboratory examination (Primary Dx) Social History [...] examination documented in this encounter Care Teams Water Quality Analyst Relationship Specialty Start Date End Date Tramaine Colby MD PCP - General Family Medicine 11/27/21 documented as of this encounter
--- OUTSIDE RECORDS SUMMARY | 2023-12-21 14:08 | XMS_ITS | Encounter Summary ---
Author Organization [facility] Address [address] [place] [address] Care Team Providers Care Pressure Vessel Inspector Name Role Phone Tramaine Colby MD Primary Care Provider Encounter Details Date Type Department Care Team (Late st Contact Info) Description 11/19/2021 [facility] Only [facility] [address] [place] [address] [place] [address] [place] [address] Social History Tobacco Use Types [...] on filedocumented in this encounter Care Teams Pressure Vessel Inspector Relationship Specialty Start Date End Date Tramaine Colby MD PCP - General Family Medicine 11/27/21 documented as of this encounter
--- OUTSIDE RECORDS SUMMARY | 2023-12-21 14:08 | XMS_ITS | Clinical Summary ---
Author Organization [facility] Address [address] [place] [address] Care Team Providers Care Customs Brokerage Manager Name Role Phone Tramaine Colby MD [...] (OCEAN) 0.65 % nasal sprayIndications:Status post surgery [place] 2 sprays into both nostrils every hour [...] (once per calendar year) 2023 INFLUENZA VACCINE (#1) 2024 , 03/21/2020, 04/06/2019, Additional history exists PAP 03/10/2024 [...] this topic Medical Devices Implanted Type Area Drag Sawyer Device Identifier Shelf Expiration Date Model / Serial / Lot Imp Scr Syn Matrix 1.85x6mm Self Drill [id number] - [id number] Implanted:Qty : 20 on 12/01/2021 by Soumya Hand DDS at [facility] Metallic Hardware/Anc hor SYNTHES-STRAT[employer] .[id number] 6. / / [id number] 26 NOV 2021 [employer]umatch 3-D Custom Plates Implanted:Qty : 1 on 12/01/2021 by Soumya Hand DDS at [facility] N/A: Maxilla Depuy [id number] / / [id number] [...] LAB - ROMULOAKER POCT RH LABORATORY POC [facility] Care Lab [address] Lab (1st floor, no room number) [place] [address], [facility] [phone] from Last 3 Months or Most Recently Relevant to Health Maintenance Advance Directives For more information, please contact: [phone] * Full Code (Latest Code Status on File) Date Activated Date Inactivated Comments 12/01/2021 4:31 PM 12/02/2021 1:32 PM All basic an d advanced life-sustaining interventions are performed as appropriate Question Answer Comments Code status determined by: Discussion with lawanda nt/ legal decision maker Care Teams Customs Brokerage Manager Relationship Specialty Start Date End Date Tramaine Colby MD PCP - General Family Medicine 11/27/21
--- OUTSIDE RECORDS SUMMARY | 2023-12-21 14:08 | XMS_ITS | Referral Summary ---
Author Organization [facility] Address [address] [place] [address] Care Team Providers Care Food Production Supervisor Name Role Phone None Reported, Pcp Primary Care Provider Unavail able Source Comments Patient records contain information from all sites at [facility]. For routine questions regarding patient records, call [phone] during business hours, M-F 8:00 AM - 5:00 PM Central Time. Record requests for emergency care only can be directed to [phone] at any time.[facility] Encounters Date Type Department Care Team Description 12/13/2023 3:30 PM CDT External Outreach Division of Nephrology and Hypertension in [place], [place] [address] [place] [address] Jie Black M.D., Ph.D. 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 More than 4 times per year 01/17/2022 Do you belong to any clubs o r organizations such as christianity groups, unions, fraternal or athletic groups, or [...] and heating? Not hard at all 01/17/2022 [facility] - Occupational Stress Questionnaire Answer Date Recorded [...] your living situation today? I have a [facility] place to live 08/17/2023 Education Answer Date Recorded What is the highest level of school you have completed or the highest degree you have received? Master's degree (e.g., MA, MS, Inez, MEd, ICE GRINDER, DEYANIRA) 11/27/2019 Sex and Gender Information Value Date Recorded Sex Assigned at Female 07/07/2018 8:28 PM NUTRITION INTERN Gender Identity Female 07/07/2018 8:28 PM NUTRITION INTERN Sexual Orientation Straight 07/07/2018 8: 28 PM NUTRITION INTERN Last Filed Vital Signs Vital Sign Reading [...] MANDIBLE Malocclusion Medical Devices Implanted Type Area Dx Board Operator Device Identifier Shelf Expiration Date Model / [...] CDT Rhett Potts M.D. LAB BLOOD ADD-ON [facility] [address] [place] [address], [facility] DTL [facility] [address] [place] [address] from Last 3 Months or Most Recently Relevant to Health Maintenance Advance Directives For more information, please contact: [phone] * Full Code (Latest Code Status on File) Date Activated Date Inactivated Comments 09/14/2022 11:40 AM 09/16/2022 2:08 AM Question Answer Comments Full Code: Discussed * Full Code Date Activated Date Inactivated Comments 09/14/2022 6:35 AM 09/14/2022 11:40 AM Question Answer Comments Full Code: Discussed Care Teams Food Production Supervisor Relationship Specialty Start Date End Date None Reported, Pcp PCP - General Family Medicine 09/14/22
== END 2023-12-21 14:03 | disposition home or self-care (01) ==
LOC: MAMMO 14:02
PROVIDERS: PCP Family Medicine; Visit Provider Family Medicine
DX: Z12.31 Encounter for screening mammogram for malignant neoplasm of breast (principal)
CPT/HCPCS: 77063; 77067

== ENCOUNTER 2024-02-17 08:23 | Outpatient (CLI) | payer OTHER, SELFPAY ==
--- OUTSIDE RECORDS SUMMARY | 2024-02-19 06:26 | XMS_ITS | Clinical Summary ---
Author Organization [facility] Address [address] [place] [address] Care Team Providers Care Toll Gate Keeper Name Role Phone None Reported, Pcp Primary Care Provider Unavail able Source Comments Patient records contain information from all sites at [facility]. For routine questions regarding patient records, call [phone] during business hours, M-F 8:00 AM - 5:00 PM Central Time. Record requests for emergency care only can be directed to [phone] at any time.[facility] Allergies No known active allergies Medications Medication Sig Dispensed Refills Start Date End Date Status cholecalciferol (VITAMIN D3) 2,000 Unit tablet Take 1 tablet by mouth daily. 02/21/2014 Active escitalopram (LEXAPRO) 10 mg tablet Take 10 mg by mouth daily. Active iron 18 mg tablet Take 1 tablet by mouth daily. Active aluminum chloride (DRYSOL) 20 % external solutionIndication s:Hyperhidrosis Apply 1 Application topically at bedtime. Apply to armpits daily at bedtime 35 mL 11 12/13/2022 Active irbesartan (Avapro) 150 mg tablet Take 1 tablet (150 mg total) by mouth daily. 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 01/05/2024 Clinical Communication Division of Nephrology and Hypertension in [place], [place] [address] [place] [address] Jie Black M.D., Ph.D. 12/13/2023 3:30 PM CDT External Outreach Division of Nephrology and Hypertension in [place], [place] [address] [place] [address] Jie Black M.D., Ph.D. Polycystic Kidney Autosomal [...] drink = 0.6 oz pur e alcohol) [facility] Kelanities Answer Date Recorded In the past [address] [facility] [employer], gas, oil, or water [employer] threatened to shut off services in your [...] often do you attend chur ch or rastafari services? More than 4 times per year 01/17/2022 Do you belong to any clubs o r organizations such as holiness groups, unions, fraternal or athletic groups, or [...] and heating? Not hard at all 01/17/2022 [facility] - Occupational Stress Questionnaire Answer Date [...] your living situation today? I have a [facility] place to live 08/17/2023 Education Answer Date Recorded What is the highest level of school you have completed or the highest degree you have received? Master's degree (e.g., MA, MS, Inez, MEd, DICTAPHONE TRANSCRIBER, DEYANIRA) 11/27/2019 Sex and Gender Information Value Date Recorded Sex Assigned at Female 07/07/2018 8:28 PM SPUD GRADER Gender Identity Female 07/07/2018 8:28 PM SPUD GRADER Sexual Orientation Straight 07/07/2018 8: 28 PM SPUD GRADER Last Filed Vital Signs Vital Sign Reading [...] this topic Medical Devices Implanted Type Area Community Support Professional Device Identifier Shelf Expiration Date Model / [...] CDT Rhett Potts M.D. LAB BLOOD ADD-ON [facility] [address] [place] [address], [facility] DTL [facility] [address] [place] [address] from Last 3 Months or Most Recently Relevant to Health Maintenance Advance Directives For more information, please contact: [phone] * Full Code (Latest Code Status on File) Date Activated Date Inactivated Comments 09/14/2022 11:40 AM 09/16/2022 2:08 AM Question Answer Comments Full Code: Discussed * Full Code Date Activated Date Inactivated Comments 09/14/2022 6:35 AM 09/14/2022 11:40 AM Question Answer Comments Full Code: Discussed Care Teams Toll Gate Keeper Relationship Specialty Start Date End Date None Reported, Pcp PCP - General Family Medicine 09/14/22
--- OUTSIDE RECORDS SUMMARY | 2024-02-19 06:26 | XMS_ITS | Referral Summary ---
Author Organization [facility] Address [address] [place] [address] Care Team Providers Care Marketing Intern Name Role Phone None Reported, Pcp Primary Care Provider Unavail able Source Comments Patient records contain information from all sites at [facility]. For routine questions regarding patient records, call [phone] during business hours, M-F 8:00 AM - 5:00 PM Central Time. Record requests for emergency care only can be directed to [phone] at any time.[facility] Encounters Date Type Department Care Team Description 01/09/2024 Orders Only Division of Nephrology and Hypertension in [place], [place] [address] [place] [address] Jie Black M.D., Ph.D. 01/05/2024 Clinical Communication Division of Nephrology and Hypertension in [place], [place] [address] [place] [address] Jie Black M.D., Ph.D. 12/13/2023 3:30 PM CDT External Outreach Division of Nephrology and Hypertension in [place], [place] [address] [place] [address] Jie Black M.D., Ph.D. Polycystic Kidney Autosomal [...] (09/12/2020): Added automatically from request for surgery [id number] Insufficiency Venous Peripheral 03/24/2020 Polycystic Kidney Autosomal [...] drink = 0.6 oz pur e alcohol) [facility] Utilities Answer Date Recorded In the past 12 months has e [employer], gas, oil, or water [employer] threatened to shut off services in your [...] How often do you attend chur or pentecostal services? More than 4 times per year 01/17/2022 Do you belong to any clubs o r organizations such as presybeterian groups, unions, fraternal or athletic groups, or [...] and heating? Not hard at all 01/17/2022 [facility] Occupat ional Health - [...] your living situation today? I have a [facility] place to live 08/17/2023 Education Answer Date Recorded What is the highest level of school you have completed or the highest degree you have received? Master's degree (e.g., MA, MS, Inez, MEd, STEREOTYPE MOLDER, DEYANIRA) 11/27/2019 Sex and Gender Information Value Date Recorded Sex Assigned at Female 07/07/2018 8:28 PM CATCHER HELPER Gender Identity Female 07/07/2018 8:28 PM CATCHER HELPER Sexual Orientation Straight 07/07/2018 8: 28 PM CATCHER HELPER Last Filed Vital Signs Vital Sign Reading [...] MANDIBLE Malocclusion Medical Devices Implanted Type Area Lift Mechanic Device Identifier Shelf Expiration Date Model / [...] CDT Rhett Potts M.D. LAB BLOOD ADD-ON [facility] [address] [place] [address], [facility] DTL [facility] [address] [place] [address] from Last 3 Months or Most Recently Relevant to Health Maintenance Advance Directives For more information, please contact: [phone] * Full Code (Latest Code Status on File) Date Activated Date Inactivated Comments 09/14/2022 11:40 AM 09/16/2022 2:08 AM Question Answer Comments Full Code: Discussed * Full Code Date Activated Date Inactivated Comments 09/14/2022 6:35 AM 09/14/2022 11:40 AM Question Answer Comments Full Code: Discussed Care Teams Marketing Intern Relationship Specialty Start Date End Date None Reported, Pcp PCP - General Family Medicine 09/14/22
--- OUTSIDE RECORDS SUMMARY | 2024-02-19 06:26 | XMS_ITS | Encounter Summary ---
Author Organization [facility] Address [address] [place] [address] Care Team Providers Care Ceo [place] Name Role Phone None Reported, Pcp Primary Care Provider Unavail able Encounter Details Date Type Department Care Team (Late st Contact Info) Description 01/09/2024 Orders Only Division of Nephrology and Hypertension in [place], [place] [address] [place] [address] Jie Black M.D., Ph.D. [address] [place] [address] Social History Tobacco Use Types Packs/Day Years Used Date Smoking Tobacco: Never Smokeless Tobacco: Never Alcohol Use Standard Drinks/Week Comments No 0 (1 standard drink = 0.6 oz pur e alcohol) [facility] Utilities Answer Date Recorded In the past [address] [facility] [employer], gas, oil, or water [employer] threatened to shut off services in your [...] How often do you attend chur or religion services? More than 4 times per year 01/17/2022 Do you belong to any clubs o r organizations such as congregational groups, unions, fraternal or athletic groups, or [...] and heating? Not hard at all 01/17/2022 [facility] of Occupat ional Health - [...] your living situation today? [facility] 08/17/2023 Education Answer Date Recorded What is the highest level of school you have completed or the highest degree you have received? Master's degree (e.g., MA, MS, Inez, MEd, SATELLITE TECHNICIAN, DEYANIRA) 11/27/2019 Sex and Gender Information Value Date Recorded Sex Assigned at Female 07/07/2018 8:28 PM COMPOSITION MIXER Gender Identity Female 07/07/2018 8:28 PM COMPOSITION MIXER Sexual Orientation Straight 07/07/2018 8: 28 PM COMPOSITION MIXER documented as of this encounter Plan of Treatment Scheduled Procedures Name Priority Associated Diagnoses Date/Ti me OSTEOTOMY MAXILLA Malocclusion OSTEOTOMY BILATERAL SAGITTAL SPLIT RAMUS MANDIBLE Malocclusion documented as of this encounter Visit Diagnoses Not on filedocumented in this encounter Care Teams [employer] [place] Relationship Specialty Start Date End Date None Reported, Pcp PCP - General Family Medicine 09/14/22 documented as of this encounter
--- OUTSIDE RECORDS SUMMARY | 2024-02-19 06:26 | XMS_ITS ---
Author Organization [facility] Address [address] [place] [address] Care Team Providers Care Oracle Adf Consultant Name Role Phone Unavailable Unavailable Unavailable Surgery Details Not on file Complications Check Surgery Details section. Procedure Estimated Blood Loss Check Surgery Details section. Procedure Findings Check Surgery Details section. Procedure Specimens Taken Check Surgery Details section.
--- OUTSIDE RECORDS SUMMARY | 2024-02-19 06:26 | XMS_ITS | Clinical Summary ---
Author Organization [facility] Address [place], [place] [address] Care Team Providers Care Roofing Machine Operator Name Role Phone Aylin Solis MD Primary [...] Overview: 01/2010 - Dr. Rhett Potts at [place] - yearly UA, BP, creatinine, copies to him at [phone], follow-up every 1-2 years. Recommend high-risk OB [...] Livin g 9 9 SHERMAN LEE Delivery Location:[facility] 016 Term 38w 5d 4.59 kg (10 lb 2 oz) M Vag None Livin g 9 9 Complications:None Delivery Location:[facility] Last Filed Vital Signs Vital Sign Reading [...] Procedure Name Priority Date/Time Associated Diagnosis Comments SECURITY SYSTEMS SALES REPRESENTATIVE THIN PREP PAP SCREEN IMAGED Routine 03/10/2021 5:35 PM CDT from Last 3 Months or Most Recently Relevant to Health Maintenance Results * SECURITY SYSTEMS SALES REPRESENTATIVE THIN PREP PAP SCREEN IMAGED (03/10/2021 5:35 PM CDT) Case Report Gynecologic Cytology Report ? Case: [id number] ? Authorizing Provider: ??Malu Whaley PA-C ?Collected: ? 03/10/2021 1735 ? Ordering Location: ? [facility] ?Received: ?03/12/2021 1131 ? First Screen: ?Baccam, Minie ? Pathologist: ? Orly Gustafson ? MD Chelsea ? Specimen: ?SECURITY SYSTEMS SALES REPRESENTATIVE ThinPrep Vial Screening, Cervical/Vaginal ? 03/27/2021 1:27 PM CDT [facility] INTERPRETATION/ RESULT NEGATIVE FOR INTRAEPITHELIAL LESION OR MALIGNANCY (NIL) (none) 03/27/2021 1:27 PM T [facility] EN[facility]AL LABORATORY R NON-NEOPLASTIC FINDING(S) Parakeratosis Reactive cellular changes associated with inflammation/repa ir 03/27/2021 1:27 PM CDT [facility] SPECIMEN ADEQUACY Satisfactory for evaluation Endocervical component present 03/27/2021 1:27 PM CDT [facility] HPV REQUEST HPV and PAP 03/27/2021 1:27 PM CDT [facility] Date of LMP 02/22/2021 03/27/2021 1:27 PM CDT [facility] ENTRMT LABORATORY Last Pap Date 02/02/2016 03/27/2021 1:27 PM CDT [facility] Last Pap Result NIL 1:27 PM CDT [facility] ENTR[facility] LABORATORY Comment:-HPV Additional Information 03/27/2021 1:27 PM CDT [facility] Comment: Interpreted at [facility] - [address], [place] [address] Automated Review Successful 03/27/2021 1:27 PM CDT [facility] ENTR[facility] LABORATORY Comment:Specimen processed s uccessfully by automated dopster device, PixatePrep Imaging System, [employer] ANCILLARY TESTING SECURITY SYSTEMS SALES REPRESENTATIVE HPV Ordered, Please see separate report 03/27/2021 1:27 PM CDT [facility] Note The pap test is a [...] and malignant lesions. 03/27/2021 1:27 PM CDT [facility] Other (Cervical/Vagina l) 03/10/2021 5:35 PM CDT 03/12/2021 11:31 AM CDT September Judd [facility] PATHOLOGY/CYTOLOGY [facility] [address] [place] [address], [place] from Last 3 Months or Most [...] 9:25 AM 04/30/2013 5:13 PM Care Teams Roofing Machine Operator Relationship Specialty Start Date End Date Aylin Solis MD PCP - General Family Practice 04/27/13
--- OUTSIDE RECORDS SUMMARY | 2024-02-19 06:27 | XMS_ITS | Encounter Summary ---
Author Organization [place] Address [address] [place] [address]. [place] [address] Care Team Providers Care Legal Intern Name Role Phone Tramaine Colby MD Primary Care Provider Encounter Details Date Type Department Care Team (Late st Contact Info) Description 11/19/2021 [facility] Only [facility] [address] [place] [address] Brett Saul MD [facility] [address] [place] [address] Pre-operative laboratory examination (Primary Dx) Social History [...] examination documented in this encounter Care Teams Legal Intern Relationship Specialty Start Date End Date Tramaine Colby MD PCP - General Family Medicine 11/27/21 documented as of this encounter
--- OUTSIDE RECORDS SUMMARY | 2024-02-19 06:27 | XMS_ITS | Encounter Summary ---
Author Organization [place] Address [address] [place] [address] Care Team Providers Care Production Aide Name Role Phone Tramaine Colby MD Primary Care Provider Encounter Details Date Type Department Care Team (Late st Contact Info) Description 11/19/2021 Orders Only [facility] [address] [place] [address] Soumya Hand, DALIA [facility] [address] [place] [address] Pre-operative laboratory examination (Primary Dx) Social History [...] examination documented in this encounter Care Teams Production Aide Relationship Specialty Start Date End Date Tramaine Colby MD PCP - General Family Medicine 11/27/21 documented as of this encounter
--- OUTSIDE RECORDS SUMMARY | 2024-02-19 06:27 | XMS_ITS | Encounter Summary ---
Author Organization [facility] Address [address] [place] [address] Care Team Providers Care Video Game Producer Name Role Phone None Reported, Pcp Primary Care Provider Unavail able Encounter Details Date Type Department Care Team (Late st Contact Info) Description 01/05/2024 Clinical Communication Division of Nephrology and Hypertension in [place], [place] [address] [place] [address] Jie Black M.D., Ph.D. [address] [place] [address] Social History Tobacco Use Types Packs/Day Years Used Date Smoking Tobacco: Never Smokeless Tobacco: Never Alcohol Use Standard Drinks/Week Comments No 0 (1 standard drink = 0.6 oz pur e alcohol) [facility] Utilities Answer Date Recorded In the past 12 months has [facility] [employer], gas, oil, or water [employer] threatened to shut off services in your [...] How often do you attend chur or restorationism services? More than 4 times per year 01/17/2022 Do you belong to any clubs o r organizations such as mormon groups, unions, fraternal or athletic groups, or [...] and heating? Not hard at all 01/17/2022 [facility] of Occupat ional Health - [...] your living situation today? I have a [facility] place to live 08/17/2023 Education Answer Date Recorded What is the highest level of school you have completed or the highest degree you have received? Master's degree (e.g., MA, MS, Inez, MEd, LOZENGE MAKER, DEYANIRA) 11/27/2019 Sex and Gender Information Value Date Recorded Sex Assigned at Female 07/07/2018 8:28 PM GAME DESIGNER/CREATIVE DIRECTOR Gender Identity Female 07/07/2018 8:28 PM GAME DESIGNER/CREATIVE DIRECTOR Sexual Orientation Straight 07/07/2018 8: 28 PM GAME DESIGNER/CREATIVE DIRECTOR documented as of this encounter Plan of Treatment Scheduled Procedures Name Priority Associated Diagnoses Date/Ti me OSTEOTOMY MAXILLA Malocclusion OSTEOTOMY BILATERAL SAGITTAL SPLIT RAMUS MANDIBLE Malocclusion documented as of this encounter Visit Diagnoses Not on filedocumented in this encounter Care Teams Video Game Producer Relationship Specialty Start Date End Date None Reported, Pcp PCP - General Family Medicine 09/14/22 documented as of this encounter
--- OUTSIDE RECORDS SUMMARY | 2024-02-19 06:27 | XMS_ITS | Referral Summary ---
Author Organization [place] Address [address] [place] [address] Care Team Providers Care Coating Machine Feeder Name Role Phone Tramaine Colby MD Primary [...] (OCEAN) 0.65 % nasal sprayIndications:Status post surgery [place] 2 sprays into both nostrils every hour [...] on file Medical Devices Implanted Type Area Research Professional Device Identifier Shelf Expiration Date Model / Serial / Lot Imp Scr Syn Matrix 1.85x6mm Self Drill .511.226.01 - [id number] Implanted:Qty : 20 on 12/01/2021 by Soumya Hand DDS at [facility] Metallic Hardware/Anc hor SY[employer]-STRATEC 511.22 [id number] NOV 2021 Trumatch 3-D Custom Plates Implanted:Qty : 1 on 12/01/2021 by Soumya Hand DDS at [facility] N/A: Maxilla Depuy [id number] / [id number] [...] LAB - BEAKER POCT RH LABORATORY POC [facility] Lab [address] [facility] Lab (1st floor, no room number) [place] [address], [facility] [phone] from Last 3 Months or Most Recently Relevant to Health Maintenance Advance Directives For more information, please contact: [phone] * Full Code (Latest Code Status on File) Date Activated Date Inactivated Comments 12/01/2021 4:31 PM 12/02/2021 1:32 PM All basic an d advanced life-sustaining interventions are performed as appropriate Question Answer Comments Code status determined by: Discussion with lawanda nt/ legal decision maker Care Teams Coating Machine Feeder Relationship Specialty Start Date End Date Tramaine Colby MD PCP - General Family Medicine 11/27/21
--- OUTSIDE RECORDS SUMMARY | 2024-02-19 06:27 | XMS_ITS | Encounter Summary ---
Author Organization [place] Address [address] [place] [address] Care Team Providers Care Pipe Fittings Molder Name Role Phone Tramaine Colby MD Primary Care Provider Encounter Details Date Type Department Care Team (Late st Contact Info) Description 11/19/2021 [facility] Only [facility] Laboratory [address] [place] [address] [place] [address] [place] [address] Social History Tobacco Use Types [...] on filedocumented in this encounter Care Teams Pipe Fittings Molder Relationship Specialty Start Date End Date Tramaine Colby MD PCP - General Family Medicine 11/27/21 documented as of this encounter
--- OUTSIDE RECORDS SUMMARY | 2024-02-19 06:27 | XMS_ITS | Clinical Summary ---
Author Organization [place] Address [address] [place] [address] Care Team Providers Care Electrician Wiring Name Role Phone Tramaine Colby MD Primary [...] (OCEAN) 0.65 % nasal sprayIndications:Status post surgery [place] 2 sprays into both nostrils every hour [...] this topic Medical Devices Implanted Type Area Retoucher Device Identifier Shelf Expiration Date Model / Serial / Lot Imp Scr Syn Matrix 1.85x6mm Self Drill .[id number] - [id number] Implanted:Qty : 20 on 12/01/2021 by Soumya Hand DDS at [facility] Metallic Hardware/Anc hor SYN[employer]ES-STRATEC .511.22 6. / [id number] NOV 2021 [employer]atch 3-D Custom Plates Implanted:Qty : 1 on 12/01/2021 by Soumya Hand DDS at [facility] N/A: Maxilla Depuy [id number] / / [id number] NOV 2021 Procedures Procedure Name Priority Date/Time Associated Diagnosis Comments GLUCOSE BY METER Routine 12/02/2021 6:02 AM CDT from Last 3 Months or Most Recently Relevant to Health Maintenance Results * (ABNORMAL) Glucose by meter (12/02/2021 6:02 AM CDT) GLUCOSE BY METER POCT 181(H) 70 - 99 mg/dL 12/02/2021 6:09 AM CDT LABORATORY POC Blood, Capillary BLOOD SPECIMEN / Unknown 12/02/2021 6:02 AM CDT 12/02/2021 6:09 AM CDT Soumya Hand DDS LAB - BEAKER POCT RH LABORATORY POC [facility] Acute Care Lab [address] [facility] Lab (1st floor, no room number) [place] [address], [facility] [phone] from Last 3 Months or Most Recently Relevant to Health Maintenance Advance Directives For more information, please contact: [phone] * Full Code (Latest Code Status on File) Date Activated Date Inactivated Comments 12/01/2021 4:31 PM 12/02/2021 1:32 PM All basic an d advanced life-sustaining interventions are performed as appropriate Question Answer Comments Code status determined by: Discussion with patie nt/ legal decision maker Care Teams Electrician Wiring Relationship Specialty Start Date End Date Tramaine Colby MD PCP - General Family Medicine 11/27/21
--- OUTSIDE RECORDS SUMMARY | 2024-02-19 06:27 | XMS_ITS | Encounter Summary ---
Author Organization [facility] Address [address] [place] [id number] Care Team Providers Care Clothing Designer Name Role Phone None Reported, Pcp Primary Care Provider Unavail able Reason for Referral * MRI/CAT/PET Scan (Routine) - Authorized Specialty Diagnoses / Procedures Referred By Jose Roberto t Referred To Contact Radiology Diagnoses Polycystic Kidney Autosomal Dominant Procedures MR Abdomen without and with IV Contrast Jie Black M.D., Ph.D. [address] [place] [address] [facility] Referral ID Status Reason Start Date Expiration Date V isits Requested Visits Authorized [id number] Authorized 12/17/2023 12/16/2024 1 1 Reason for Visit * Appointment Request (Routine) - Closed Specialty Diagnoses / Procedures Referred By Jose Roberto pizano Referred To Contact Nephrology and Hypertension Referral ID Status Reason Start Date Expiration Date Visits Re quested Visits Authorized [id number] Closed 10/27/2023 10/26/2024 1 1 Encounter Details Date Type Department Care Team (Latest Contact Info) Description 12/13/2023 3:30 PM CDT External Outreach Division of Nephrology and Hypertension in [place], [place] [address] [place] [address] Jie Black M.D., Ph.D. [address] [place] [phone] Polycystic Kidney Autosomal Dominant (Primary Dx) Social History Tobacco Use Types Packs/Day Years Used Date Smoking Tobacco: Never Smokeless Tobacco: Never Alcohol Use Standard Drinks/Week Comments No 0 (1 standard drink = 0.6 oz pur e alcohol) [facility] Utilities Answer Date Recorded In the [...] week 01/17/2022 How often do you attend [facility] or jewish services? More than 4 times per year 01/17/2022 Do you belong to any clubs o r organizations such as scientology groups, unions, fraternal or athletic groups, or [...] and heating? Not hard at all 01/17/2022 [facility] - Occupational Stress Questionnaire Answer Date Recorded [...] Master's degree (e.g., WANDA, MS, [place]ez, MEd, MECHANICAL MAINTENANCE TECHNICIAN, DEYANIRA) 11/27/2019 Sex and Gender Information Value Date Recorded Sex Assigned at Female 07/07/2018 8:28 PM E [employer] Gender Identity Female 07/07/2018 8:28 PM E [employer] Sexual Orientation Straight 07/07/2018 8: 28 PM E [employer] documented as of this encounter Progress Notes * Jie Black M.D., Ph.D. - 12/13/2023 3:30 PM CDT SUBJECTIVE CHIEF COMPLAINT/REASON FOR VISIT Polycystic kidney disease management. HISTORY OF PRESENT ILLNESS Mrs. Lee is a 43-year-old lady with history of ADPKD diagnosed in 2009. She has family history from her mother and maternal grandfather. She used to follow with Dr. Potts at [facility]. She is transferring care to [facility] due to closer location to her [...] EXTREMITY <20; Surgeon: Ann Mackenzie M.D.; Location: [facility] OR No Known Allergies Social History [...] The patient comes to establish care at [facility]. I will order an MRI of abdomen and pelvisto evaluate kidney function. This MRI will be done in [place]. Laboratory workup will be done in [facility]. The patient is normotensive on current therapy. No changes were made to her antihypertensive medications. The patient requires a lipid panel done on a yearly basis. This will be done through her primary care provider. Recommendations for an optimized ADPKD management to slow disease progression: 1- Blood pressure control: We recommend close monitoring and control of blood pressure. Goal <= 130/80 mm Hg. 2- Dietary sodium restriction: We recommend moderate sodium restriction (2.3-3 g/d). 3- Hydration: We recommend moderately enhancing hydration spread out over 24 hrs (during the day, at bedtime and at night if waking up). We recommend maintaining urine osmolality <= 280 mOsm/Kg. 4- Dietary protein: We recommend dietary protein intake of 0.8-1 g/Kg of ideal body weight 5- Dietary phosphorus: We recommend moderate dietary phosphorus restriction to 800 mg /day. 6- Acid base: We recommend maintaining plasma bicarbonate within the normal range (>= 22 mEq/L) 7- Caloric intake: We recommend maintaining normal BMI and restrict moderately caloric intake 8- Lipid control: We recommend aiming for serum LDL <= 100 mg/dL. Return visit to this clinic in 1 year to monitor her kidney function and PKD management. All questions were answered. Funmilayo Cr M.D., Ph.D. CT CT Job ID: [id number] documented in this encounter Plan of Treatment [...] Primary documented in this encounter Care Teams Clothing Designer Relationship Specialty Start Date End Date None Reported, Pcp PCP - General Family Medicine 09/14/22 documented as of this encounter
== END 2024-02-17 08:24 | disposition home or self-care (01) ==
LOC: NFLDREF 02-19 06:24
PROVIDERS: PCP Family Medicine; Referring Provider Family Medicine; Visit Provider Registered Nurse
DX: Z13.6 Encounter for screening for cardiovascular disorders (principal); Z13.9 Encounter for screening, unspecified
CPT/HCPCS: 80061; 82728

== ENCOUNTER 2024-02-24 15:00 | Outpatient (RCR) | payer OTHER, SELFPAY | END 2024-06-23 23:59 | disposition home or self-care (01) | PROVIDERS: PCP Family Medicine; Visit Provider Obstetrics & Gynecology | DX: N81.89 Other female genital prolapse (principal); Q52.4 Other congenital malformations of vagina; R27.8 Other lack of coordination; Z51.89 Encounter for other specified aftercare | CPT/HCPCS: 97110; 97140; 97162; 97535 ==

== ENCOUNTER 2024-12-05 14:53 | Outpatient (CLI) | payer OTHER, SELFPAY ==
--- NOTE | 2024-12-05 15:00 | CRLHL7_ITS ---
For Patients: As a result of the Century Cures Act, medical imaging exams and procedure reports are released immediately into your electronic medical record. You may view this report before your referring provider. If you have questions, please contact your health care provider. INDICATION: abnormal bleeding, check IUD COMPARISON: None. TECHNIQUE: 2D kauffman-scale and color Doppler images were acquired of the pelvis using a transabdominal and transvaginal approach. Transvaginal imaging performed to better visualize the endometrial stripe and ovaries. FINDINGS: Sonographic images demonstrate a normal size and smooth outer contour of the uterus. Uterus measures 10.8 cm in length by 4.9 cm in AP diameter by 7.0 cm in transverse dimension. The myometrium has a normal uniform echotexture. The endometrial lining measures 5.5 mm in composite thickness. IUD is present in good position within the endometrial canal. The right ovary measures 4.0 x 2.6 x 3.8 cm in size and the left ovary measures 1.6 x 2.7 x 2.7 cm. The ovaries demonstrate normal arterial and venous blood flow on color Doppler analysis. Mild pelvic free fluid. Simple cyst right ovary measures 3.5 x 2.6 x 3.4 cm. IMPRESSION: Simple right ovarian cyst measures 3.5 cm. Normal position of an IUD within the endometrial canal. Endometrial thickness 5.5 millimeters. No uterine fibroid. Dictated by Tramaine Arvizu MD @ 12/06/2024 11:36:18 AM (Electronically Signed)
== END 2024-12-05 14:54 | disposition home or self-care (01) ==
LOC: US 14:53
PROVIDERS: PCP Family Medicine; Visit Provider Obstetrics & Gynecology
DX: N93.9 Abnormal uterine and vaginal bleeding, unspecified (principal); N83.201 Unspecified ovarian cyst, right side; R93.89 Abnormal findings on diagnostic imaging of other specified body structures
CPT/HCPCS: 76830; 76856

== ENCOUNTER 2024-12-24 10:13 | Outpatient (CLI) | payer OTHER, SELFPAY ==
--- NOTE | 2024-12-24 10:15 | CRLHL7_ITS ---
For Patients: As a result of the Century Cures Act, medical imaging exams and procedure reports are released immediately into your electronic medical record. You may view this report before your referring provider. If you have questions, please contact your health care provider. INDICATION: BILATERAL SCREENING MAMMOGRAM, ASYMPTOMATIC 44 Y/O FEMALE COMPARISON: 12/21/2023, 12/14/2022 TECHNIQUE: Digital mammogram in CC and MLO projections including computer-aided detection (CAD) and tomosynthesis. BREAST COMPOSITION: There are scattered areas of fibroglandular density. FINDINGS: No suspicious findings. ASSESSMENT: BI-RADS 1 Negative RECOMMENDATION: Annual screening mammogram. A lay language report of this examination will be provided to the patient. Dictated by: Tramaine Arvizu MD @ 12/24/2024 11:41:55 (Electronically Signed)
== END 2024-12-24 10:14 | disposition home or self-care (01) ==
LOC: MAMMO 10:14
PROVIDERS: PCP Family Medicine; Visit Provider Physician Assistant
DX: Z12.31 Encounter for screening mammogram for malignant neoplasm of breast (principal)
CPT/HCPCS: 77063; 77067

== ENCOUNTER 2025-01-15 10:28 | Outpatient (CLI) | payer OTHER, SELFPAY | END 2025-01-15 10:29 | disposition home or self-care (01) | LOC: NFLDREF 10:29 | PROVIDERS: PCP Family Medicine; Visit Provider Obstetrics & Gynecology | DX: N81.4 Uterovaginal prolapse, unspecified (principal) | CPT/HCPCS: 87086 ==